=== PATIENT | female | born 1960 | race Hispanic/Latino ===

== ENCOUNTER 2018-08-05 10:26 | Emergency (ER) | payer MEDICARE ==
[2018-08-05] MEDS ORDERED: ONDANSETRON ODT 4 MG TAB ONE (11:32)
[2018-08-05] MEDS ORDERED: MORPHINE SULFATE 4 MG/1ML SYG ONE (11:33)
[2018-08-05 11:35] LABS: APPEARANCE,URINE Clear (CLEAR); BILIRUBIN,URINE Negative (NEGATIVE); COLOR,URINE Yellow (YELLOW); GLUCOSE, URINE (UA) Negative (NEGATIVE); KETONES,URINE Negative (NEGATIVE); LEUKOCYTE ESTERASE ,URINE Negative (NEGATIVE); NITRATE,URINE Negative (NEGATIVE); OCCULT BLOOD,URINE Negative (NEGATIVE); PH,URINE 5.5 (5.0-8.0); PROTEIN,URINE POS 1+ (NEGATIVE); UROBILINOGEN,URINE 0.2 mg/dL (0.2-1.0)
[2018-08-05 11:54] LABS: BACTERIA,URINE Rare /HPF (None Seen); RBC,URINE None Seen /HPF (0-1); WBC,URINE None Seen /HPF (0-1)
== END 2018-08-05 13:09 | disposition home or self-care (01) ==
LOC: EDH 10:26
DX: S86.811A Strain of other muscle(s) and tendon(s) at lower leg level, right leg, initial encounter (principal); E11.9 Type 2 diabetes mellitus without complications; I10 Essential (primary) hypertension; X58.XXXA Exposure to other specified factors, initial encounter; Y93.89 Activity, other specified; Y92.89 Other specified places as the place of occurrence of the external cause; Y99.8 Other external cause status
CPT/HCPCS: 73502; 73552; 81001; 96372; 99284; J2270

== ENCOUNTER 2018-11-03 19:17 | Emergency (ER) | payer MEDICARE ==
[2018-11-03] MEDS ORDERED: DiphenhydrAMINE HCL 50 MG/ML VIAL ONE (20:06)
[2018-11-03] MEDS ORDERED: FAMOTIDINE/PF 20 MG/2 ML VIAL IV ONE (20:07)
[2018-11-03 20:11] LABS: BASOPHILS % (AUTO) 0.5 % (0.0-5.0); EOSINOPHILS % (AUTO) 1.6 % (0.0-8.0); HEMATOCRIT 34.5 % (36-48); LYMPHOCYTES % (AUTO) 19.6 % (21.0-51.0); MEAN CORPUSCULAR HEMOGLOBIN 30.9 pg (27.0-33.0); MEAN CORPUSCULAR HGB CONC 32.9 g/dL (32.0-36.0); MEAN CORPUSCULAR VOLUME 93.7 fL (79-99); MONOCYTES % (AUTO) 8.2 % (3.0-13.0); NEUTROPHILS % (AUTO) 70.1 % (40.0-77.0); PLATELET COUNT (AUTO) 104 K/uL (130-400); RED BLOOD CELL COUNT(AUTO) 3.68 MIL/uL (4.00-5.50); RED CELL DISTRIBUTION WIDTH 14.4 % (11.0-15.5); WHITE BLOOD COUNT (AUTO) 3.7 K/uL (4.8-10.8)
[2018-11-03 20:31] LABS: CREATININE 0.8 mg/dL (0.5-1.5); POTASSIUM 4.5 mmol/L (3.5-5.1)
[2018-11-03 20:35] LABS: ALBUMIN 2.8 g/dL (3.5-5.0); BILIRUBIN,TOTAL 0.3 mg/dL (0.2-1.0); TOTAL PROTEIN, SERUM 6.6 g/dL (6.0-8.3)
[2018-11-03] MEDS ORDERED: ONDANSETRON HCL 4 MG/2 ML VIAL ONE (21:01)
[2018-11-03] MEDS ORDERED: MORPHINE SULFATE 4 MG/1ML SYG ONE (21:01)
== END 2018-11-03 22:17 | disposition home or self-care (01) ==
LOC: EDH 19:17
DX: L03.316 Cellulitis of umbilicus (principal); I10 Essential (primary) hypertension; E11.9 Type 2 diabetes mellitus without complications; T78.40XA Allergy, unspecified, initial encounter; X58.XXXA Exposure to other specified factors, initial encounter
CPT/HCPCS: 36415; 80053; 85025; 96374; 96375; 99284; J1200; J2270; J2405; J3490

== ENCOUNTER 2019-12-14 13:24 | Inpatient (IN) | payer MEDICARE ==
[~2019-12-14] VITALS: Ht 157.5 cm; Wt 68.4 kg
[2019-12-14 14:44] LABS: BASOPHILS % (AUTO) 0.1 % (0.0-5.0); EOSINOPHILS % (AUTO) 2.2 % (0.0-8.0); HEMATOCRIT 30.2 % (36-48); LYMPHOCYTES % (AUTO) 1.8 % (21.0-51.0); MEAN CORPUSCULAR HEMOGLOBIN 29.2 pg (27.0-33.0); MEAN CORPUSCULAR HGB CONC 31.8 g/dL (32.0-36.0); MEAN CORPUSCULAR VOLUME 91.8 fL (79-99); MONOCYTES % (AUTO) 1.6 % (3.0-13.0); NEUTROPHILS % (AUTO) 94.1 % (40.0-77.0); PLATELET COUNT (AUTO) 156 K/uL (130-400); RED BLOOD CELL COUNT(AUTO) 3.29 MIL/uL (4.00-5.50); RED CELL DISTRIBUTION WIDTH 19.8 % (11.0-15.5); WHITE BLOOD COUNT (AUTO) 17.1 K/uL (4.8-10.8)
[2019-12-14 15:04] LABS: CREATININE 2.2 mg/dL (0.5-1.5); POTASSIUM 3.5 mmol/L (3.5-5.1)
[2019-12-14] MEDS ORDERED: SODIUM CHLORIDE 0.9% 1000ML 1,000 ML IV ONE (15:14)
[2019-12-14 15:20] LABS: BILIRUBIN,TOTAL 0.4 mg/dL (0.2-1.0); TOTAL PROTEIN, SERUM 6.9 g/dL (6.0-8.3)
[2019-12-14 15:28] LABS: APPEARANCE,URINE CLEAR (CLEAR); BILIRUBIN,URINE SMALL (NEGATIVE); COLOR,URINE YELLOW (YELLOW); GLUCOSE, URINE (UA) NEGATIVE (NEGATIVE); KETONES,URINE NEGATIVE (NEGATIVE); LEUKOCYTE ESTERASE ,URINE NEGATIVE (NEGATIVE); NITRATE,URINE NEGATIVE (NEGATIVE); OCCULT BLOOD,URINE NEGATIVE (NEGATIVE); PH,URINE 5.5 (5.0-8.0); PROTEIN,URINE NEGATIVE (NEGATIVE); UROBILINOGEN,URINE 0.2 mg/dL (0.2-1.0)
[2019-12-14 15:36] LABS: BACTERIA,URINE Few /HPF (None Seen); MUCUS,URINE Moderate LPF (None Seen); SQUAMOUS EPITHELIAL CELL,UR Few /HPF (0-2)
[2019-12-14] MEDS: 1/2 NORMAL SALINE 1,000 ML IV SCH (16:00)
[2019-12-14] MEDS ORDERED: CEFEPIME HCL 1 GM VIAL ONE (16:33)
[2019-12-14] MEDS: CEFEPIME HCL 1 GM VIAL IVP SCH (17:00)
[2019-12-14 17:46] VITALS: BP 116/62
--- NOTE | 2019-12-14 18:30 | NUR ---
DR. ANTON MALIK MD PAGED REGARDING BLOOD SUGAR 58 AND NEED FOR DIET ORDERS.
[2019-12-14] MEDS ORDERED: DEXTROSE 50%-WATER 50 ML DISP.SYRIN IV ONE (18:53)
--- NOTE | 2019-12-14 18:55 | NUR ---
HYPOGLYCEMIA PROTOCOL INITIATED PATIENT CONSCIOUS BUT VERY WEAK AND NOT ABLE TO DRINK 1/2 CUP OF ORANGE JUICE. ADMINISTERED DEXTROSE 50% 25 ML VIA IV.
[2019-12-14 19:13] VITALS: BP 123/54
--- NOTE | 2019-12-14 19:15 | NUR ---
BLOOD SUGAR RECHECK 52 INITIATED DEXTROSE 10% AT 60 CC/HR PER HYPOGLYCEMIA PROTOCOL. PATIENT CONSCIOUS AND RESPONSIVE. WILL CONTINUE TO MONITOR.
[2019-12-14] MEDS ORDERED: DEXTROSE 10%-WATER 1,000 ML IV ONE (19:19)
--- NOTE | 2019-12-14 20:00 | NUR ---
REPAGED DR. WALTON CALLED 'S ANSWERING SERVICE TO REPAGE
[2019-12-14] MEDS ORDERED: DEXTROSE 50%-WATER 50 ML DISP.SYRIN IV PRN (20:15)
[2019-12-14] MEDS: DEXTROSE 10%-WATER 1,000 ML IV SCH (20:15)
[2019-12-14] MEDS ORDERED: GLUCAGON 1MG KIT 1 MG ML IM PRN (20:15)
[2019-12-14] MEDS: ONDANSETRON HCL 4 MG/2 ML VIAL IVP PRN (21:15)
[2019-12-14] MEDS ORDERED: ESCI10TA54 PO (22:05)
[2019-12-14] MEDS ORDERED: OMEP40CA13 PO (22:05)
[2019-12-14] MEDS ORDERED: PENT400T72 PO (22:05)
[2019-12-14] MEDS ORDERED: IRON 65 MG PO (22:05)
[2019-12-14] MEDS ORDERED: ONDA-104 PO (22:05)
[2019-12-14] MEDS ORDERED: NIFE90TA65 PO (22:05)
[2019-12-14] MEDS ORDERED: CLOP75TA32 PO (22:05)
[2019-12-14] MEDS ORDERED: AEC81 PO (22:05)
[2019-12-14] MEDS ORDERED: TRAM50TA4 PO (22:05)
[2019-12-14] MEDS ORDERED: FURO20TA4 PO (22:05)
[2019-12-14] MEDS ORDERED: SULF1TAB42 PO (22:05)
[2019-12-14] MEDS ORDERED: MULT-1250 PO (22:05)
[2019-12-14] MEDS ORDERED: ICOS1CAP PO (22:05)
[2019-12-14] MEDS ORDERED: ATOR40TA71 PO (22:05)
[2019-12-14] MEDS ORDERED: SILD20TA14 PO (22:05)
[2019-12-14 23:58] VITALS: BP 136/63
--- NOTE | 2019-12-15 01:00 | NUR ---
SISTER STATES PATIENT HAS NOT VOIDED SINCE YESTERDAY AT 11:00AM IN ER. PATIENT DENIES URGE TO VOID, BUT VOICED DISCOMFORT UPON BLADDER PALPATION. AFTER MULTIPLE ATTEMPTS, BLADDER SCAN NOTES GREATER THAN 1234ML OF URINE. INSERTED 16FR F/C, BUT OBTAINED ONLY 400ML OF URINE WITH TRACES OF SEDIMENT. WILL CONTINUE TO MONITOR.
[2019-12-15 04:00] VITALS: BP 118/42
[2019-12-15] MEDS: CEFEPIME HCL 1 GM VIAL IVP SCH ×2 (05:02→16:08)
[2019-12-15] MEDS ORDERED: SODIUM CHLORIDE 0.9% 250 ML IV ONE (05:04)
[2019-12-15 05:11] LABS: BASOPHILS % (AUTO) 0.1 % (0.0-5.0); EOSINOPHILS % (AUTO) 0.3 % (0.0-8.0); HEMATOCRIT 27.6 % (36-48); LYMPHOCYTES % (AUTO) 4.1 % (21.0-51.0); MEAN CORPUSCULAR HEMOGLOBIN 29.3 pg (27.0-33.0); MEAN CORPUSCULAR HGB CONC 31.9 g/dL (32.0-36.0); MONOCYTES % (AUTO) 2.6 % (3.0-13.0); NEUTROPHILS % (AUTO) 92.5 % (40.0-77.0); NUCLEATED RED BLOOD CELLS 0.2 % (0.0-0.19); PLATELET COUNT (AUTO) 121 K/uL (130-400); RED CELL DISTRIBUTION WIDTH 20.1 % (11.0-15.5)
[2019-12-15 05:29] LABS: ALBUMIN 1.4 g/dL (3.5-5.0); BILIRUBIN,TOTAL 0.2 mg/dL (0.2-1.0); CREATININE 2.1 mg/dL (0.5-1.5); POTASSIUM 3.1 mmol/L (3.5-5.1); TOTAL PROTEIN, SERUM 5.6 g/dL (6.0-8.3)
--- NOTE | 2019-12-15 07:25 | NUR ---
DR. WALTON CALLED BACK AND WAS INFORMED OF BLADDER SCAN RESULTS AND INSERTION OF F/C. HE GAVE OK FOR THE F/C. HE WAS ALSO INFORMED OF K+ 3.1 AND MAG OF 1.1 THIS AM, BUN 36/CREA 2.1, STATES HE WILL BE IN LATER THIS AM.
[2019-12-15 07:59] VITALS: BP 118/57
--- NOTE | 2019-12-15 08:00 | NUR ---
RECIEVED PT WITH D10W INFUSING AT 60 [facility] PER PROTOCOL TO KEEP BLOOD SUGARS GREATER THAN 70'S. BLOOD SUGAR CHECK AT Q 4 HRS . FOR MONITORING . STATUS.
[2019-12-15] MEDS: PANTOPRAZOLE SODIUM 40 MG TABLET.DR PO SCH (09:00)
[2019-12-15] MEDS ORDERED: TRAMADOL HCL 50 MG TABLET PO SCH (09:00)
[2019-12-15] MEDS ORDERED: SILDENAFIL CITRATE 20 MG TABLET PO SCH (09:00)
[2019-12-15] MEDS: ATORVASTATIN CALCIUM 40 MG TABLET PO SCH (09:00)
[2019-12-15] MEDS: **HM** VASCEPA 2GM PO SCH (09:00)
[2019-12-15] MEDS: MULTIVITAMINS/MINERALS/IRO TAB PO SCH (09:00)
[2019-12-15] MEDS ORDERED: PANTOPRAZOLE 40 MG/VIAL IVP SCH (09:00)
[2019-12-15] MEDS: FERROUS SULFATE 325 MG TABLET.DR PO SCH (09:00)
[2019-12-15] MEDS: FUROSEMIDE 20 MG TABLET PO SCH (09:00)
[2019-12-15] MEDS: NIFEDIPINE ER 30 MG TAB PO SCH (09:00)
[2019-12-15] MEDS: CITALOPRAM 20 MG TABLET PO SCH (09:00)
[2019-12-15] MEDS: ASPIRIN 81 MG EC TAB PO SCH (09:00)
[2019-12-15] MEDS ORDERED: CLOPIDOGREL BISULFATE 75 MG TAB PO SCH (09:00)
[2019-12-15] MEDS: PENTOXIFYLLINE 400 MG TABLET.SA PO SCH ×2 (09:00→20:30)
--- NOTE | 2019-12-15 10:00 | NUR ---
SITTER AT THE BEDSIDE, GENE STATED THAT THE HOME MEDICATIONS . THAT ARE LISTED TO GIVE OR NOT GIVEN AT THE TIMES THE HOSPITAL HAS THEM LIST TO GIVE, . STATED THAT SHE WOULD GIVE HER SISTER HER HOME MEDICATIONS AT THE PROPER TIME AND WILL LET US KNOW WHICH ONE, STATED THAT SHE WOULD TAKE CARE OF THAT AREA . OF HER SISTER CARE . REVIEW MEDICATIONS LISTED TO GIVE STATED THAT THE TIMES TO GIVE THEM TO HER WOULD ONLY GET HER SICK TO HER STOMACH . IF MEDICATION ARE GIVEN SCHLD.
[2019-12-15 11:18] VITALS: BP 121/74
--- NOTE | 2019-12-15 12:00 | NUR ---
DRSG TO HER ABD DONE. PER SISTER INFORMATION . SITE TO LOWER AREA OF ABD .CLEANSE WITH THE SALINE, PAD DRY AND APPLICATION OF MED HONEY AND THE IDOFORM AND USED PAPER TAPE . PT HAS ONE SM TO HER LT INNER GROIN AND WAS DONE. PER SISTER INFORMATION . A WAFFLE MATTRESS OFFER FOR SKIN CARE. COMFORT.
[2019-12-15] MEDS ORDERED: POTASSIUM CHLORIDE 20MEQ/100ML 100 ML IV PRN ×2 (12:15→17:00)
[2019-12-15] MEDS ORDERED: LIDOCAINE HCL-MPF 1% 2ML VIAL IV PRN ×2 (12:15→17:00)
[2019-12-15] MEDS ORDERED: TRAMADOL HCL 50 MG TABLET PO PRN (14:15)
[2019-12-15] MEDS ORDERED: MAGNESIUM OXIDE 400 MG TABLET PO ONE (15:09)
[2019-12-15] MEDS ORDERED: MAGNESIUM OXIDE 400 MG TABLET PO SCH (15:15)
[2019-12-15] MEDS: DEXTROSE 10%-WATER 1,000 ML IV SCH (16:09)
[2019-12-15 16:35] VITALS: BP 119/48
[2019-12-15] MEDS: POTASSIUM CHLORIDE 10% ELIXIR 20 MEQ/15 ML UDCUP PO PRN (16:49)
[2019-12-15] MEDS ORDERED: POTASSIUM CHLORIDE 10% ELIXIR 20 MEQ/15 ML UDCUP PO PRN (17:00)
[2019-12-15] MEDS: POTASSIUM CHLORIDE 20 MEQ ERTAB PO PRN (18:29)
[2019-12-15] MEDS: 1/2 NORMAL SALINE 1,000 ML IV SCH (18:40)
--- NOTE | 2019-12-15 18:51 | NUR ---
D/C PLAN CM spoke to sister named Delores regarding d/c planning. [facility] pt lives with sister named Ira. Denies having any home health. Pt has provider and has assistance 23/01. [facility] pt has w/c and shower chair at home. [facility] pt follows up with Dr. Hernandez every Monday for wound care. [facility] family was performing wound care at home. CM then discussed with both sister Ira and Delores about plan after the hospital. [facility] they have discussed [facility] placement vs hospice at home. [facility] Dr. Last is treating in hospital and monitoring for improvement in condition. CM obtained consent for CAROL to [facility]. No d/c planning orders at this time. Plan for now is SNF vs hospice. CM to f/u. Addendum: 12/15/19 at 1854 by JOSHUA KITCHEN CM Amended: Links added.
[2019-12-15 20:00] VITALS: BP 99/70
[2019-12-15] MEDS: SILDENAFIL CITRATE 20 MG TABLET PO SCH (20:30)
[2019-12-15] MEDS: CLOPIDOGREL BISULFATE 75 MG TAB PO SCH (20:30)
[2019-12-15 23:38] VITALS: BP_SYST 106; BP_SYST 139; BP_DIAS 50; BP_DIAS 76
[2019-12-16] MEDS: TRAMADOL HCL 50 MG TABLET PO PRN (01:24)
[2019-12-16] MEDS: ONDANSETRON HCL 4 MG/2 ML VIAL IVP PRN ×3 (01:24→16:16)
[2019-12-16] MEDS: POTASSIUM CHLORIDE 20 MEQ ERTAB PO PRN (01:25)
--- NOTE | 2019-12-16 02:00 | NUR ---
Pain Patient medicated as per [place] for complaints of ABD pain with Tramadol 100mg po. Patient and sister at bedside requesting something stronger for pain at this time. called and aware. New orders received and carried out. Patient and family aware. Initial dose of Morphine 4mg given IVP slowly. Tolerated well. Repositioned for comfort. No signs of distress noted. Call light within reach. Will continue to be observed. Addendum: 12/16/19 at 0726 by SENG LOUISE RN RN Amended: Links added.
[2019-12-16] MEDS ORDERED: MORPHINE SULFATE 4 MG/1ML SYG ONE (02:01)
[2019-12-16 03:42] VITALS: BP 118/49
[2019-12-16 05:05] LABS: HEMATOCRIT 29.5 % (36-48); MEAN CORPUSCULAR HEMOGLOBIN 29.5 pg (27.0-33.0); MEAN CORPUSCULAR HGB CONC 32.5 g/dL (32.0-36.0); MEAN CORPUSCULAR VOLUME 90.8 fL (79-99); RED BLOOD CELL COUNT(AUTO) 3.25 MIL/uL (4.00-5.50); RED CELL DISTRIBUTION WIDTH 20.2 % (11.0-15.5); WHITE BLOOD COUNT (AUTO) 8.3 K/uL (4.8-10.8)
[2019-12-16 05:25] LABS: ALBUMIN 1.4 g/dL (3.5-5.0); BILIRUBIN,TOTAL 0.2 mg/dL (0.2-1.0); CREATININE 1.8 mg/dL (0.5-1.5); POTASSIUM 3.5 mmol/L (3.5-5.1); TOTAL PROTEIN, SERUM 5.7 g/dL (6.0-8.3)
[2019-12-16] MEDS: MORPHINE SULFATE 4 MG/1ML SYG IV PRN ×2 (05:40→10:41)
[2019-12-16] MEDS: CEFEPIME HCL 1 GM VIAL IVP SCH ×2 (05:40→16:07)
[2019-12-16] MEDS: DEXTROSE 10%-WATER 1,000 ML IV SCH ×2 (06:24→16:06)
[2019-12-16 07:30] VITALS: BP 119/58
[2019-12-16] MEDS: NIFEDIPINE ER 30 MG TAB PO SCH (09:00)
[2019-12-16] MEDS: SILDENAFIL CITRATE 20 MG TABLET PO SCH ×2 (09:00→21:00)
[2019-12-16] MEDS: NYSTATIN 15 GM POWDER TP SCH ×2 (09:00→21:00)
[2019-12-16] MEDS: PENTOXIFYLLINE 400 MG TABLET.SA PO SCH ×2 (09:00→21:00)
[2019-12-16] MEDS: PANTOPRAZOLE SODIUM 40 MG TABLET.DR PO SCH (09:00)
[2019-12-16] MEDS: FUROSEMIDE 20 MG TABLET PO SCH (09:00)
[2019-12-16] MEDS: MULTIVITAMINS/MINERALS/IRO TAB PO SCH (09:00)
[2019-12-16] MEDS: FERROUS SULFATE 325 MG TABLET.DR PO SCH (09:00)
[2019-12-16] MEDS: CITALOPRAM 20 MG TABLET PO SCH (09:00)
[2019-12-16] MEDS: ASPIRIN 81 MG EC TAB PO SCH (09:00)
[2019-12-16] MEDS: **HM** VASCEPA 2GM PO SCH (09:00)
[2019-12-16] MEDS ORDERED: MAGNESIUM OXIDE 400 MG TABLET PO SCH (09:00)
[2019-12-16] MEDS: ATORVASTATIN CALCIUM 40 MG TABLET PO SCH (09:00)
--- NOTE | 2019-12-16 10:00 | NUR ---
PT'S SISTER WHO IF POA OF PT PREFERS TO GIVE PT HER HOME MEDICATIONS FROM THERE OWN SUPPLY AND AT THE TIMES SHE TAKES THEM AT HOME; I HAVE GIVEN HER MAG OX FROM THE HOSPITAL SUPPLY
--- NOTE | 2019-12-16 10:50 | NUR ---
PT C/O NAUSEA, SHE VOMITED UP 2 OF THE PILLS SHE WAS TAKING; I HAVE GIVEN HER ZOFRAN FOR THE NAUSEA AND MORPHINE FOR THE PAIN SHE IS C/O. WOUND CARE CENTER PERSON HERE TO EVALUATE WOUND ON LEFT HAND THUMB, THE PT'S DAUGHTER CHANGES THE DRESSING AT HOME AND APPLIES SANTYL CREAM; WOUND CARE STATED THIS HOSPITAL DID NOT CARRY SANTYL CREAM BUT THAT IF THE FAMILY WANTS TO THEY COULD USE THERE OWN OWEN CREAM ON IT; THE PT'S SISTER STATED THEY WILL USE THERE OWN CREAM THEN AND SHE REDRESSED THE WOUND WITH PT'S OWN CREAM; I ATTEMPTED TO TAKE A PICTURE OF THE WOUND BUT THE BATTERY WAS ON THE CAMERA, ITS MEASUREMENTS WERE 1.3 CM B1.8 CM W/ A DEPTH OF .2 CM; IT IS A CIRCULAR WOUND WITH WHITE TISSUE WITHIN THE WOUND BEDS, PT TOLERATED PROC. WELL. PT THEN WENT FOR CT OF ABDOMAN AND PELVIS TO EVALUATE THE WOUND ON HER LOWER ABDOMAN.
[2019-12-16 11:00] VITALS: BP 136/68
--- NOTE | 2019-12-16 12:00 | NUR ---
I HAVE LEFT MESSAGE ON DR WALTON CELL PHONE IN REGARDS TO RESULTS OF CT DONE AND PT'S MAGNESIUM LEVEL; PENDING CALL BACK
--- NOTE | 2019-12-16 12:12 | NUR ---
[facility] consult Patient assessed as ordered. Patient with wounds to abdomen, mons pubis, coccyx and right buttock; all being treated with medihoney. Wound to left thumb also assessed. Patient's cg requesting to continue treatment as ordered by Dr. Hernandez. [facility] in agreement and cg has patient's treatment in room for use. Consult by Dr. Hernandez pending. Waffle mattress in use.
[2019-12-16] MEDS: POTASSIUM CHLORIDE 10% ELIXIR 20 MEQ/15 ML UDCUP PO PRN (12:19)
[2019-12-16 12:47] LABS: INR 1.36 (0.85-1.15); PROTHROMBIN TIME 14.5 SEC (9.6-11.6)
--- NOTE | 2019-12-16 14:20 | NUR ---
DC PLAN SPOKE TO NURSE SAID PATIENT HAS POSSIBLE ILIUS, ASCITIES, CT WAS ABNORMAL. LABS ABNORMAL NOT READY FOR DC IN NEXT 24 - 48 HRS. SPOKE TO TIFF SAID THEY WOULD NEED THE COVID SINCE THE CITY SAID THEY NEED IT. ASKED NURSE TO PLEASE CLARIFY ORDER FOR SNF HOW LONG DR. WALTON WOULD WANT ABX FOR. PATIENT ALSO PENDING PICC LINE. Addendum: 12/16/19 at 1422 by ASAD HUA RN CM Amended: Links added.
--- NOTE | 2019-12-16 15:03 | NUR ---
I SPOKE TO DR WALTON ON THE PHONE AND HE STATED TO PLAN FOR 7 DAYS OF IV ABX AT , TO INCREASE MAG OX 400 PO TO BID INSTEAD OF DAILY FOR MG LEVEL OF 1.0 AND TO HAVE INTERVENTIONAL RADIOLOGY PERFORM PARACENTESIS FOR LARGE ASCITES COLLECTION IN ABDOMAN. ; I HAVE ENTERED ORDERS FOR ALL THE ABOVE.
[2019-12-16 16:00] VITALS: BP 145/56
[2019-12-16] MEDS: 1/2 NORMAL SALINE 1,000 ML IV SCH (16:06)
[2019-12-16 19:30] VITALS: BP 107/57
[2019-12-16] MEDS: CLOPIDOGREL BISULFATE 75 MG TAB PO SCH (21:00)
[2019-12-16] MEDS: MAGNESIUM OXIDE 400 MG TABLET PO SCH (21:00)
--- NOTE | 2019-12-16 21:00 | NUR ---
JUAN C PINEDA PAGED
--- NOTE | 2019-12-16 21:00 | NUR ---
WOUND CARE PERFORMEDAS ORDERED PT TOLERATED PROCEDURE WELL
[2019-12-17] VITALS (13 sets, daily range): BP systolic 126–154; BP diastolic 55–76
[2019-12-17] MEDS: ONDANSETRON HCL 4 MG/2 ML VIAL IVP PRN ×2 (01:24→15:15)
--- NOTE | 2019-12-17 01:50 | NUR ---
DR. ALBERTO MALIK AGAIN NO CALL BACK YET Addendum: 12/17/19 at 0208 by EDE BENSON RN Amended: Links added.
--- NOTE | 2019-12-17 03:50 | NUR ---
DR DOMINGUEZ PAGED TO HER CELLPHONE NO ANSWER
[2019-12-17 04:03] LABS: EOSINOPHILS % (AUTO) 0.1 % (0.0-8.0); HEMATOCRIT 29.4 % (36-48); LYMPHOCYTES % (AUTO) 3.8 % (21.0-51.0); MEAN CORPUSCULAR HEMOGLOBIN 29.5 pg (27.0-33.0); MEAN CORPUSCULAR HGB CONC 32.7 g/dL (32.0-36.0); MEAN CORPUSCULAR VOLUME 90.5 fL (79-99); MONOCYTES % (AUTO) 2.6 % (3.0-13.0); NEUTROPHILS % (AUTO) 93.2 % (40.0-77.0); NUCLEATED RED BLOOD CELLS 0.2 % (0.0-0.19); PLATELET COUNT (AUTO) 146 K/uL (130-400); RED BLOOD CELL COUNT(AUTO) 3.25 MIL/uL (4.00-5.50); RED CELL DISTRIBUTION WIDTH 19.8 % (11.0-15.5); WHITE BLOOD COUNT (AUTO) 10.3 K/uL (4.8-10.8)
[2019-12-17 04:18] LABS: ALBUMIN 1.4 g/dL (3.5-5.0); BILIRUBIN,TOTAL 0.3 mg/dL (0.2-1.0); CREATININE 1.5 mg/dL (0.5-1.5); POTASSIUM 3.7 mmol/L (3.5-5.1); TOTAL PROTEIN, SERUM 5.4 g/dL (6.0-8.3)
--- NOTE | 2019-12-17 06:20 | NUR ---
DR. DOMINGUEZ CALLED BACK AWARE OF PT' S HISTORY AND STATUS , AWARE OF PT'S CT ABD RESUTLS AND EPISODES OF EMESIS , AWARE OF COLOR OF EMESIS ASKED OF PATIENT MIGHT BENEFIT FROM NG TUBE STATED , NO , TO LET ROUND
[2019-12-17] MEDS: CEFEPIME HCL 1 GM VIAL IVP SCH ×2 (06:38→18:07)
[2019-12-17] MEDS: MORPHINE SULFATE 4 MG/1ML SYG IV PRN ×2 (06:39→20:27)
[2019-12-17] MEDS: HONEY 1 APPL/ML TUBE TP SCH (06:45)
[2019-12-17] MEDS: NYSTATIN 15 GM POWDER TP SCH ×2 (09:00→22:00)
[2019-12-17] MEDS: PENTOXIFYLLINE 400 MG TABLET.SA PO SCH ×2 (09:00→21:57)
[2019-12-17] MEDS: NIFEDIPINE ER 30 MG TAB PO SCH (09:00)
[2019-12-17] MEDS: ATORVASTATIN CALCIUM 40 MG TABLET PO SCH (09:00)
[2019-12-17] MEDS: MAGNESIUM OXIDE 400 MG TABLET PO SCH ×2 (09:00→21:57)
[2019-12-17] MEDS: **HM** VASCEPA 2GM PO SCH (09:00)
[2019-12-17] MEDS: FUROSEMIDE 20 MG TABLET PO SCH (09:00)
[2019-12-17] MEDS: ASPIRIN 81 MG EC TAB PO SCH (09:00)
[2019-12-17] MEDS: CITALOPRAM 20 MG TABLET PO SCH (09:00)
[2019-12-17] MEDS: FERROUS SULFATE 325 MG TABLET.DR PO SCH (09:00)
[2019-12-17] MEDS: PANTOPRAZOLE SODIUM 40 MG TABLET.DR PO SCH (09:00)
[2019-12-17] MEDS: MULTIVITAMINS/MINERALS/IRO TAB PO SCH (09:00)
--- NOTE | 2019-12-17 09:45 | NUR ---
U/S GD PARACENTESIS PROCEDURE PERFORMED BY DR Radha ALDANA. PUNCTURE SITE RUQ AND PATIENT TOLERATED PROCEDURE WELL. TOTAL REMOVED 5.1 LITERS OF CLOUDY YELLOW FLUID. END OF PROCEDURE AT 0930. CATHETER REMOVED AND DRESSING APPLIED. NO BLEEDING NOTED. REPORT GIVEN TO Diane COHN RN AND PATIENT TRANSPORTED TO [facility] VIA BED AT 0945. AAO X3 WITH NO C/O PAIN. SPECIMEN SENT TO LAB.
[2019-12-17] MEDS ORDERED: ALBUMIN (HUMAN) 25% 100 ML IV SCH (10:15)
[2019-12-17] MEDS: 1/2 NORMAL SALINE 1,000 ML IV SCH ×2 (10:33→23:38)
[2019-12-17] MEDS: SILDENAFIL CITRATE 20 MG TABLET PO SCH ×2 (10:35→21:57)
[2019-12-17 12:54] LABS: APPEARANCE BODY FLUID CLOUDY (CLEAR); COLOR,BODY FLUID LT YELLOW (LT YELLOW); SPECIMENTYPE,BODY FLUID ASCITES; TOTAL VOLUME,BODY FLUID 5100 mL
[2019-12-17 12:55] LABS: BODY FLUID RBC 59 /cu. mm.; BODY FLUID WBC 368 /cu. mm.
[2019-12-17 12:59] LABS: BF LYMPHOCYTE 11 %; BF MONOCYTE 9 %
[2019-12-17] MEDS: DEXTROSE 10%-WATER 1,000 ML IV SCH (13:55)
[2019-12-17] MEDS: ONDANSETRON HCL 4 MG/2 ML VIAL IVP SCH ×2 (18:00→23:42)
[2019-12-17] MEDS: CLOPIDOGREL BISULFATE 75 MG TAB PO SCH (21:57)
[2019-12-18] VITALS (7 sets, daily range): BP systolic 108–167; BP diastolic 47–71
[2019-12-18] MEDS: MORPHINE SULFATE 4 MG/1ML SYG IV PRN ×4 (03:29→23:26)
--- NOTE | 2019-12-18 04:30 | NUR ---
TOOK OVER CARE TOOK OVER CARE FROM GENE ORTIZ RN PATIENT AAOX2 FAMILY MEMBER AT BEDSIDE. PATIENTS DRESSING TO ABD DRY AND INTACT. MCKINNEY CATHETER IN PLACE AND TELEMONITOR IN PLACE WELL. ALL QUESTIONS AND CONCERNS ADDRESSED.
[2019-12-18] MEDS: CEFEPIME HCL 1 GM VIAL IVP SCH ×2 (05:50→16:17)
[2019-12-18] MEDS: ONDANSETRON HCL 4 MG/2 ML VIAL IVP SCH ×4 (05:50→23:25)
[2019-12-18] MEDS: DEXTROSE 10%-WATER 1,000 ML IV SCH ×2 (05:51→23:26)
--- NOTE | 2019-12-18 06:09 | NUR ---
DRESSING ATTEMPTED TO CHANGE ABDOMINAL DRESSING BUT FAMILY MEMBER AT BED SIDE STATED TO WAIT. NIECE STATED PATIENT SISTER WAS GOING TO BATH PATIENT IN AM AND THEN WE COULD DO THE DRESSING AFTER.
[2019-12-18] MEDS: ATORVASTATIN CALCIUM 40 MG TABLET PO SCH (09:00)
[2019-12-18] MEDS: **HM** VASCEPA 2GM PO SCH (09:00)
[2019-12-18] MEDS: ASPIRIN 81 MG EC TAB PO SCH (09:00)
[2019-12-18] MEDS: FUROSEMIDE 20 MG TABLET PO SCH (09:00)
[2019-12-18] MEDS: SILDENAFIL CITRATE 20 MG TABLET PO SCH ×2 (09:00→21:00)
[2019-12-18] MEDS: MAGNESIUM OXIDE 400 MG TABLET PO SCH ×2 (09:00→21:00)
[2019-12-18] MEDS: PANTOPRAZOLE SODIUM 40 MG TABLET.DR PO SCH (09:00)
[2019-12-18] MEDS: CITALOPRAM 20 MG TABLET PO SCH (09:00)
[2019-12-18] MEDS: FERROUS SULFATE 325 MG TABLET.DR PO SCH (09:00)
[2019-12-18] MEDS: NIFEDIPINE ER 30 MG TAB PO SCH (09:00)
[2019-12-18] MEDS: PENTOXIFYLLINE 400 MG TABLET.SA PO SCH ×2 (09:00→21:00)
[2019-12-18] MEDS: MULTIVITAMINS/MINERALS/IRO TAB PO SCH (09:00)
[2019-12-18] MEDS: HONEY 1 APPL/ML TUBE TP SCH (09:20)
[2019-12-18] MEDS: NYSTATIN 15 GM POWDER TP SCH ×2 (09:21→21:14)
[2019-12-18 10:10] LABS: MEAN CORPUSCULAR HEMOGLOBIN 29.8 pg (27.0-33.0); MEAN CORPUSCULAR HGB CONC 32.7 g/dL (32.0-36.0); MEAN CORPUSCULAR VOLUME 91.2 fL (79-99); PLATELET COUNT (AUTO) 126 K/uL (130-400); RED BLOOD CELL COUNT(AUTO) 3.29 MIL/uL (4.00-5.50); RED CELL DISTRIBUTION WIDTH 19.9 % (11.0-15.5); WHITE BLOOD COUNT (AUTO) 8.5 K/uL (4.8-10.8)
[2019-12-18 10:20] LABS: CREATININE 1.5 mg/dL (0.5-1.5); POTASSIUM 3.2 mmol/L (3.5-5.1)
[2019-12-18 10:59] LABS: BAND NEUTROPHILS % (MANUAL) 1 % (0-2); LYMPHOCYTES % (MANUAL) 5 % (22-44); MONOCYTES % (MANUAL) 2 % (2-9); SEGMENTED NEUTROPHILS % 92 % (40-70)
[2019-12-18 11:00] LABS: MAN.DIFF COMMENT-IMPRESSION MANUAL DIFFERENTIAL
[2019-12-18 11:02] LABS: PLATELET MORPHOLOGY COMMENT SLIGHTLY DECREASED
[2019-12-18] MEDS ORDERED: POTASSIUM CHLORIDE 20MEQ/100ML 100 ML IV PRN (14:45)
--- NOTE | 2019-12-18 16:10 | NUR ---
NGT 14F NASOGASTRIC TUBE INSERTED AT THIS TIME. THERE WAS AN IMMEDIATE RETURN OF DARK GREEN LIQUID IN THE CANISTER. PATIENT TOLERATED WELL. NGT PLACED TO LOW INTERMITTENT WALL SUCTION. SISTER IN ROOM THROUGHOUT PROCEDURE. PATIENT REPORTS FEELING BETTER. WILL CONTINUE TO MONITOR.
[2019-12-18] MEDS: MAGNESIUM 2GM PREMIX 50ML 50 ML IV PRN (18:24)
[2019-12-18] MEDS ORDERED: BISACODYL 10 MG SUPP.RECT RC ONE (19:30)
[2019-12-18] MEDS: CLOPIDOGREL BISULFATE 75 MG TAB PO SCH (21:00)
[2019-12-19 03:06] VITALS: BP 137/54
[2019-12-19] MEDS: MORPHINE SULFATE 4 MG/1ML SYG IV PRN ×3 (03:49→23:49)
[2019-12-19] MEDS: CEFEPIME HCL 1 GM VIAL IVP SCH ×2 (03:53→16:55)
[2019-12-19 05:26] LABS: BASOPHILS % (AUTO) 0.2 % (0.0-5.0); EOSINOPHILS % (AUTO) 0.7 % (0.0-8.0); HEMATOCRIT 25.5 % (36-48); LYMPHOCYTES % (AUTO) 6.4 % (21.0-51.0); MEAN CORPUSCULAR HEMOGLOBIN 29.8 pg (27.0-33.0); MEAN CORPUSCULAR HGB CONC 32.9 g/dL (32.0-36.0); MEAN CORPUSCULAR VOLUME 90.4 fL (79-99); MONOCYTES % (AUTO) 4.8 % (3.0-13.0); NEUTROPHILS % (AUTO) 87.4 % (40.0-77.0); PLATELET COUNT (AUTO) 80 K/uL (130-400); RED BLOOD CELL COUNT(AUTO) 2.82 MIL/uL (4.00-5.50); RED CELL DISTRIBUTION WIDTH 19.7 % (11.0-15.5); WHITE BLOOD COUNT (AUTO) 5.5 K/uL (4.8-10.8)
[2019-12-19 05:47] LABS: CREATININE 1.4 mg/dL (0.5-1.5); MAGNESIUM 1.6 mg/dL (1.80-2.40); POTASSIUM 3.2 mmol/L (3.5-5.1)
[2019-12-19] MEDS: MAGNESIUM 2GM PREMIX 50ML 50 ML IV PRN (06:01)
[2019-12-19] MEDS: ONDANSETRON HCL 4 MG/2 ML VIAL IVP SCH ×4 (06:01→22:48)
[2019-12-19] MEDS: HONEY 1 APPL/ML TUBE TP SCH (06:27)
[2019-12-19 07:47] VITALS: BP 138/47
[2019-12-19] MEDS: ATORVASTATIN CALCIUM 40 MG TABLET PO SCH (09:00)
[2019-12-19] MEDS: CITALOPRAM 20 MG TABLET PO SCH (09:00)
[2019-12-19] MEDS: ASPIRIN 81 MG EC TAB PO SCH (09:00)
[2019-12-19] MEDS: SILDENAFIL CITRATE 20 MG TABLET PO SCH ×2 (09:00→21:00)
[2019-12-19] MEDS: FERROUS SULFATE 325 MG TABLET.DR PO SCH (09:00)
[2019-12-19] MEDS: NIFEDIPINE ER 30 MG TAB PO SCH (09:00)
[2019-12-19] MEDS: MULTIVITAMINS/MINERALS/IRO TAB PO SCH (09:00)
[2019-12-19] MEDS: MAGNESIUM OXIDE 400 MG TABLET PO SCH ×2 (09:00→21:00)
[2019-12-19] MEDS: PENTOXIFYLLINE 400 MG TABLET.SA PO SCH ×2 (09:00→21:00)
[2019-12-19] MEDS: **HM** VASCEPA 2GM PO SCH (09:00)
[2019-12-19] MEDS: FUROSEMIDE 10 MG/ML 2ML VIAL IV SCH (09:15)
[2019-12-19] MEDS: FAMOTIDINE/PF 20 MG/2 ML VIAL IV SCH (09:15)
[2019-12-19 11:16] VITALS: BP 132/46
[2019-12-19] MEDS: LEVOFLOXACIN 500 MG/D5W 100 ML 100 ML IV SCH (13:23)
[2019-12-19] MEDS: DEXTROSE 5 %-0.45 % NACL 1,000 ML IV SCH ×2 (13:23→21:30)
[2019-12-19] MEDS: NYSTATIN 15 GM POWDER TP SCH ×2 (13:25→22:44)
[2019-12-19] MEDS: DEXTROSE 10%-WATER 1,000 ML IV SCH (13:27)
[2019-12-19 19:09] VITALS: BP 125/47
[2019-12-19] MEDS ORDERED: PHENOL 177 ML BOTTLE PO PRN (20:45)
[2019-12-19] MEDS: CLOPIDOGREL BISULFATE 75 MG TAB PO SCH (21:00)
[2019-12-19 23:11] VITALS: BP 138/52
[2019-12-20 03:58] VITALS: BP 134/48
[2019-12-20 04:29] LABS: BASOPHILS % (AUTO) 0.2 % (0.0-5.0); EOSINOPHILS % (AUTO) 0.9 % (0.0-8.0); HEMATOCRIT 27.8 % (36-48); LYMPHOCYTES % (AUTO) 7.7 % (21.0-51.0); MEAN CORPUSCULAR HEMOGLOBIN 29.4 pg (27.0-33.0); MEAN CORPUSCULAR VOLUME 91.7 fL (79-99); NEUTROPHILS % (AUTO) 85.9 % (40.0-77.0); PLATELET COUNT (AUTO) 65 K/uL (130-400); RED BLOOD CELL COUNT(AUTO) 3.03 MIL/uL (4.00-5.50); RED CELL DISTRIBUTION WIDTH 19.9 % (11.0-15.5); WHITE BLOOD COUNT (AUTO) 5.8 K/uL (4.8-10.8)
[2019-12-20 04:45] LABS: CREATININE 1.1 mg/dL (0.5-1.5); POTASSIUM 3.9 mmol/L (3.5-5.1)
[2019-12-20] MEDS: DEXTROSE 10%-WATER 1,000 ML IV SCH ×2 (05:47→23:27)
[2019-12-20] MEDS: ONDANSETRON HCL 4 MG/2 ML VIAL IVP SCH ×4 (05:48→23:27)
[2019-12-20] MEDS: HONEY 1 APPL/ML TUBE TP SCH (05:48)
[2019-12-20] MEDS: MORPHINE SULFATE 4 MG/1ML SYG IV PRN ×2 (05:48→21:27)
[2019-12-20] MEDS: CEFEPIME HCL 1 GM VIAL IVP SCH ×2 (05:48→16:22)
[2019-12-20 07:30] VITALS: BP 109/38
[2019-12-20] MEDS: DEXTROSE 5 %-0.45 % NACL 1,000 ML IV SCH (07:30)
[2019-12-20] MEDS: NIFEDIPINE ER 30 MG TAB PO SCH (08:55)
[2019-12-20] MEDS: CITALOPRAM 20 MG TABLET PO SCH (08:55)
[2019-12-20] MEDS: ASPIRIN 81 MG EC TAB PO SCH (08:55)
[2019-12-20] MEDS: PENTOXIFYLLINE 400 MG TABLET.SA PO SCH ×2 (08:56→20:01)
[2019-12-20] MEDS: SILDENAFIL CITRATE 20 MG TABLET PO SCH ×2 (08:56→20:02)
[2019-12-20] MEDS: FERROUS SULFATE 325 MG TABLET.DR PO SCH (08:56)
[2019-12-20] MEDS: ATORVASTATIN CALCIUM 40 MG TABLET PO SCH (08:56)
[2019-12-20] MEDS: MULTIVITAMINS/MINERALS/IRO TAB PO SCH (08:56)
[2019-12-20] MEDS: MAGNESIUM OXIDE 400 MG TABLET PO SCH ×2 (08:56→20:01)
[2019-12-20] MEDS: **HM** VASCEPA 2GM PO SCH (08:56)
[2019-12-20] MEDS: NYSTATIN 15 GM POWDER TP SCH ×2 (08:57→21:35)
[2019-12-20] MEDS: FAMOTIDINE/PF 20 MG/2 ML VIAL IV SCH (09:18)
[2019-12-20] MEDS: FUROSEMIDE 10 MG/ML 2ML VIAL IV SCH (09:18)
[2019-12-20] MEDS: LEVOFLOXACIN 500 MG/D5W 100 ML 100 ML IV SCH (11:17)
--- NOTE | 2019-12-20 11:53 | NUR ---
HOSPICE SW met with pt and sister at bedside regarding order for [facility]. Sister upset, stated that they never said they wanted hospice. SW educated sister on hospice services and criteria for eligibility and sister stated "that's not want we want". Sister stated that she asked Dr Last several questions but his responses were short and dismissive. "I asked if IV would continue on hospice, and he said no", but did not explain anything else to me". Sister states that Ira Meredithzman [phone], is pt's MPOA but pt's 2 sisters and mother all care and support pt. Sister states that because of covid, and visitation restrictions, family would prefer pt be at home, but they are in no means "ready to give up on pt". "I asked Dr Last about her prognosis, and he said she thought she would get better, so why is he ordering hospice". Sister explained that this is a recommendation by , but they don't have to go thru with it if they are not ready. Sister states that family does not feel that communication with Dr Last is very good regarding care and prognosis, family feels they really don't understand what is going on with pt nor their options. Sister called Ira and asked her to call SW so they can discuss.
--- NOTE | 2019-12-20 12:04 | NUR ---
DAKOTAH PORTER recd call from DAKOTAH Glover. DAKOTAH states that she was talking to someone at a hospice agency and knows that "hospice is not what family wants". "They explained HH services to her and she feels this is want they are looking for not hospice. DAKOTAH upset, states that family not happy with Dr Last and his care, but because of covid, changing doctors is not an option at this time. CARLOSA feels that communication has not been good and feels they are not well informed on condition or options for pt. German educated CARLOSSandra on Dr Reyes, Palliative Care. DAKOTAH feels that this would help them in making more informed decisions, but feel that Dr Last will be offended by this request and "treat them worse". GERMAN offered to ask Dr Last for consult and see if he agrees. DAKOTAH was agreeable. DAKOTAH states they will continue to treat pt aggressively and are open to other options than hospice at this time. CM made aware of above and will staff with [facility].
--- NOTE | 2019-12-20 12:51 | NUR ---
GERMAN f/u Sw recd call from [facility]. Dr Last wants [facility] to come speak to pt about hospice not Dr Reyes. Sw spoke to pt's sister Ira, who states she does not need a hospice to explain their services, she needs a doctor to explain to her and the family what is pt's current condition, prognosis, and options. Sister states she has spoke to several hospice agencies and knows that this is not what they want for pt unless Dr Last knows something about pt's condition that he has not sheared with them that would call for pt to be on hospice. Sister refused referral to [facility] and will talk to Dr Last herself. Sw to follow and assist as needed
--- NOTE | 2019-12-20 13:13 | NUR ---
ONCOLOGY/ HEMATOLOGY DR. GRECO IN TO SEE PATIENT. NO NEW ORDERS AT THIS TIME.
[2019-12-20 16:00] VITALS: BP 112/37
[2019-12-20] MEDS: CLOPIDOGREL BISULFATE 75 MG TAB PO SCH (20:01)
[2019-12-20 20:28] VITALS: BP 109/55
[2019-12-21] VITALS: BP 117/57
[2019-12-21 04:00] VITALS: BP 138/62
[2019-12-21] MEDS: CEFEPIME HCL 1 GM VIAL IVP SCH ×2 (04:21→17:32)
[2019-12-21] MEDS: MORPHINE SULFATE 4 MG/1ML SYG IV PRN ×4 (04:33→19:54)
[2019-12-21 05:50] LABS: BASOPHILS % (AUTO) 0.1 % (0.0-5.0); EOSINOPHILS % (AUTO) 2.5 % (0.0-8.0); HEMATOCRIT 25.5 % (36-48); LYMPHOCYTES % (AUTO) 6.8 % (21.0-51.0); MEAN CORPUSCULAR HEMOGLOBIN 30.1 pg (27.0-33.0); MEAN CORPUSCULAR HGB CONC 32.9 g/dL (32.0-36.0); MEAN CORPUSCULAR VOLUME 91.4 fL (79-99); MONOCYTES % (AUTO) 5.1 % (3.0-13.0); NEUTROPHILS % (AUTO) 85.1 % (40.0-77.0); PLATELET COUNT (AUTO) 56 K/uL (130-400); RED BLOOD CELL COUNT(AUTO) 2.79 MIL/uL (4.00-5.50); RED CELL DISTRIBUTION WIDTH 19.7 % (11.0-15.5); WHITE BLOOD COUNT (AUTO) 7.3 K/uL (4.8-10.8)
[2019-12-21 06:25] LABS: BILIRUBIN,TOTAL 0.3 mg/dL (0.2-1.0); CREATININE 1.1 mg/dL (0.5-1.5); POTASSIUM 3.5 mmol/L (3.5-5.1); TOTAL PROTEIN, SERUM 4.7 g/dL (6.0-8.3)
[2019-12-21] MEDS: ONDANSETRON HCL 4 MG/2 ML VIAL IVP SCH ×3 (06:33→17:32)
[2019-12-21] MEDS: HONEY 1 APPL/ML TUBE TP SCH (06:41)
[2019-12-21 08:00] VITALS: BP 104/52
[2019-12-21] MEDS: MULTIVITAMINS/MINERALS/IRO TAB PO SCH (09:00)
[2019-12-21] MEDS: ASPIRIN 81 MG EC TAB PO SCH (09:00)
[2019-12-21] MEDS: FAMOTIDINE/PF 20 MG/2 ML VIAL IV SCH (09:00)
[2019-12-21] MEDS: **HM** VASCEPA 2GM PO SCH (09:00)
[2019-12-21] MEDS: FERROUS SULFATE 325 MG TABLET.DR PO SCH (09:00)
[2019-12-21] MEDS: FUROSEMIDE 10 MG/ML 2ML VIAL IV SCH (09:00)
[2019-12-21] MEDS: ATORVASTATIN CALCIUM 40 MG TABLET PO SCH (09:00)
[2019-12-21] MEDS: SILDENAFIL CITRATE 20 MG TABLET PO SCH ×2 (09:00→21:00)
[2019-12-21] MEDS: CITALOPRAM 20 MG TABLET PO SCH (09:00)
[2019-12-21] MEDS: PENTOXIFYLLINE 400 MG TABLET.SA PO SCH ×2 (09:00→21:00)
[2019-12-21] MEDS: NIFEDIPINE ER 30 MG TAB PO SCH (09:00)
[2019-12-21] MEDS: NYSTATIN 15 GM POWDER TP SCH (09:00)
[2019-12-21] MEDS: MAGNESIUM OXIDE 400 MG TABLET PO SCH ×2 (09:00→21:00)
[2019-12-21] MEDS: LEVOFLOXACIN 500 MG/D5W 100 ML 100 ML IV SCH (11:23)
[2019-12-21 12:00] VITALS: BP 136/56
[2019-12-21 16:00] VITALS: BP_SYST 126; BP_SYST 152; BP_DIAS 58; BP_DIAS 73
[2019-12-21] MEDS: DEXTROSE 10%-WATER 1,000 ML IV SCH (17:31)
[2019-12-21 19:30] VITALS: BP 165/75
[2019-12-21] MEDS: CLOPIDOGREL BISULFATE 75 MG TAB PO SCH (21:00)
[2019-12-22] VITALS: BP 128/68
[2019-12-22] MEDS: ONDANSETRON HCL 4 MG/2 ML VIAL IVP SCH ×4 (00:28→17:09)
[2019-12-22] MEDS: NYSTATIN 15 GM POWDER TP SCH ×3 (00:34→21:00)
[2019-12-22 04:00] VITALS: BP 132/54
[2019-12-22] MEDS: CEFEPIME HCL 1 GM VIAL IVP SCH ×2 (04:17→17:09)
[2019-12-22] MEDS: MORPHINE SULFATE 4 MG/1ML SYG IV PRN ×4 (04:18→17:09)
[2019-12-22] MEDS: HONEY 1 APPL/ML TUBE TP SCH (06:48)
[2019-12-22 08:00] VITALS: BP 114/47
[2019-12-22] MEDS: FAMOTIDINE/PF 20 MG/2 ML VIAL IV SCH (08:48)
[2019-12-22] MEDS: FUROSEMIDE 10 MG/ML 2ML VIAL IV SCH (08:49)
[2019-12-22] MEDS: ASPIRIN 81 MG EC TAB PO SCH (08:54)
[2019-12-22] MEDS: NIFEDIPINE ER 30 MG TAB PO SCH (08:54)
[2019-12-22] MEDS: CITALOPRAM 20 MG TABLET PO SCH (08:55)
[2019-12-22] MEDS: MAGNESIUM OXIDE 400 MG TABLET PO SCH ×2 (08:55→21:00)
[2019-12-22] MEDS: SILDENAFIL CITRATE 20 MG TABLET PO SCH ×2 (08:55→21:00)
[2019-12-22] MEDS: MULTIVITAMINS/MINERALS/IRO TAB PO SCH (08:55)
[2019-12-22] MEDS: **HM** VASCEPA 2GM PO SCH (08:55)
[2019-12-22] MEDS: PENTOXIFYLLINE 400 MG TABLET.SA PO SCH ×2 (08:55→21:00)
[2019-12-22] MEDS: ATORVASTATIN CALCIUM 40 MG TABLET PO SCH (08:55)
[2019-12-22] MEDS: FERROUS SULFATE 325 MG TABLET.DR PO SCH (08:55)
[2019-12-22] MEDS: DEXTROSE 10%-WATER 1,000 ML IV SCH (10:17)
[2019-12-22] MEDS: LEVOFLOXACIN 500 MG/D5W 100 ML 100 ML IV SCH (11:29)
[2019-12-22 16:00] VITALS: BP 119/61
[2019-12-22 20:08] VITALS: BP 151/68
[2019-12-22] MEDS: CLOPIDOGREL BISULFATE 75 MG TAB PO SCH (21:00)
[2019-12-23 00:08] VITALS: BP 123/58
[2019-12-23] MEDS: ONDANSETRON HCL 4 MG/2 ML VIAL IVP SCH ×4 (00:17→17:30)
[2019-12-23 04:08] VITALS: BP 130/63
--- NOTE | 2019-12-23 05:06 | NUR ---
PAGED MD RAI PAGED REGARDING PRN PAIN MEDICATION AND PER FAMILY REQUEST. PENDING CALL BACK
[2019-12-23] MEDS ORDERED: MORPHINE SULFATE 2 MG/ML 1ML SYG ONE (05:13)
[2019-12-23] MEDS: CEFEPIME HCL 1 GM VIAL IVP SCH (05:15)
--- NOTE | 2019-12-23 05:15 | NUR ---
DR. DOMINGUEZ CALLED BACK NEW ORDER FOR MORPHINE 2MG IV Q 4HR PRN.
[2019-12-23] MEDS: DEXTROSE 10%-WATER 1,000 ML IV SCH (05:16)
--- NOTE | 2019-12-23 06:00 | NUR ---
DRESSING CHANGED DRESSING TO SACRUM AND ABDOMEN CHANGED
--- NOTE | 2019-12-23 06:22 | NUR ---
AM BLOOD SUGAR REFUSED AM BLOOD GLUCOSE STICK
[2019-12-23] MEDS: HONEY 1 APPL/ML TUBE TP SCH (06:45)
[2019-12-23 08:21] VITALS: BP 120/56
[2019-12-23] MEDS: MULTIVITAMINS/MINERALS/IRO TAB PO SCH (09:00)
[2019-12-23] MEDS: **HM** VASCEPA 2GM PO SCH (09:00)
[2019-12-23] MEDS: FUROSEMIDE 10 MG/ML 2ML VIAL IV SCH (09:00)
[2019-12-23] MEDS: DEXTROSE 5 %-0.45 % NACL 1,000 ML IV SCH ×2 (09:00→22:45)
[2019-12-23] MEDS: NYSTATIN 15 GM POWDER TP SCH ×2 (09:00→20:44)
[2019-12-23] MEDS: FERROUS SULFATE 325 MG TABLET.DR PO SCH (09:00)
[2019-12-23] MEDS: PENTOXIFYLLINE 400 MG TABLET.SA PO SCH ×2 (09:00→21:00)
[2019-12-23] MEDS: FAMOTIDINE/PF 20 MG/2 ML VIAL IV SCH (09:00)
[2019-12-23] MEDS: ASPIRIN 81 MG EC TAB PO SCH (09:00)
[2019-12-23] MEDS: NIFEDIPINE ER 30 MG TAB PO SCH (09:00)
[2019-12-23] MEDS ORDERED: BISACODYL 10 MG SUPP.RECT RC SCH (09:00)
[2019-12-23] MEDS: MAGNESIUM OXIDE 400 MG TABLET PO SCH ×2 (09:00→21:00)
[2019-12-23] MEDS: SILDENAFIL CITRATE 20 MG TABLET PO SCH ×2 (09:00→21:00)
[2019-12-23] MEDS: CITALOPRAM 20 MG TABLET PO SCH (09:00)
[2019-12-23] MEDS: ATORVASTATIN CALCIUM 40 MG TABLET PO SCH (09:00)
[2019-12-23] MEDS: MORPHINE SULFATE 2 MG/ML 1ML SYG IV PRN ×4 (09:01→22:44)
--- NOTE | 2019-12-23 09:46 | NUR ---
ss f/u Sw met with DAKOTAH Glover who is at bedside. Sister states she spoke to Dr Last this am, but she does not think she is understanding that she will not make decision about hospice vs hh till she has better understanding of current condition, prognosis and options. Nurse Kirill explained to sister what Dr Last said to her this am, and that Dr Last was ordering hospice rep from [facility] to come educate sister on services. Kirill stated that sister told Dr Last she did not know enough about hospice and HH to make decision so, Dr placed order based on sister's comment. Sister repeated several times to nurse and SW, that without a prognosis and understanding of pt's condition, she was not going to make a decision. Sister states she felt pressured to go with hospice.Nurse and SW explained that Dr Last was acting on what sister was saying, that she needed to be more direct with questions she wanted answered. Sister states that she will not go with hospice that Dr Last recommends because she does not want him to follow pt. Kirill to talk to Dr Last and see if he will agree to Dr Reyes meeting with DAKOTAH. Waiting for nurse to recontact SW.
[2019-12-23] MEDS ORDERED: DEXTROSE 5 %-0.45 % NACL 1,000 ML IV ONE (10:29)
[2019-12-23] MEDS ORDERED: BISACODYL 10 MG SUPP.RECT RC ONE (10:30)
[2019-12-23 11:48] VITALS: BP 102/85
[2019-12-23 16:39] LABS: MEAN CORPUSCULAR HEMOGLOBIN 29.8 pg (27.0-33.0); MEAN CORPUSCULAR HGB CONC 32.3 g/dL (32.0-36.0); MEAN CORPUSCULAR VOLUME 92.2 fL (79-99); PLATELET COUNT (AUTO) 40 K/uL (130-400); RED BLOOD CELL COUNT(AUTO) 2.82 MIL/uL (4.00-5.50); RED CELL DISTRIBUTION WIDTH 19.4 % (11.0-15.5)
[2019-12-23 16:58] LABS: BILIRUBIN,TOTAL 0.4 mg/dL (0.2-1.0); CREATININE 1.2 mg/dL (0.5-1.5); POTASSIUM 3.4 mmol/L (3.5-5.1); TOTAL PROTEIN, SERUM 4.6 g/dL (6.0-8.3)
[2019-12-23 17:14] VITALS: BP 106/68
[2019-12-23 18:38] LABS: LYMPHOCYTES % (MANUAL) 5 % (22-44); MONOCYTES % (MANUAL) 3 % (2-9); SEGMENTED NEUTROPHILS % 92 % (40-70)
[2019-12-23 18:39] LABS: MAN.DIFF COMMENT-IMPRESSION MANUAL DIFFERENTIAL
[2019-12-23] MEDS ORDERED: ALTEPLASE 2 MG/VIAL IVCATH ONE (20:15)
[2019-12-23 20:37] VITALS: BP 143/51
[2019-12-23] MEDS: CLOPIDOGREL BISULFATE 75 MG TAB PO SCH (21:00)
--- NOTE | 2019-12-23 21:00 | NUR ---
picc line PATIENT'S PICC LINE OCCLUDED ORDERS TAKEN BY DAY NURSE FOR CATHFLO. IT DID NOT ARRIVE UNTIL 2100 WHEN I ADMINISTERED THE DOSE OF 2MG TO PICK PORT IN RIGHT ARM. I WAITED THE 30 MIN AND RETURNED TO ASPIRATE AND WAS ABLE TO ASPIRATE 10 ML OF BLOOD WHICH I DISPOSED OF. THEN I FLUSHED THE LINE WITH 20 ML OF NS AND DID THE SAME TO THE OTHER PORT. PATIENT AND FAMILY MEMBER AT SIDE ALL QUESTIONS AND CONCERNS ADDRESSED.
[2019-12-24] MEDS: ONDANSETRON HCL 4 MG/2 ML VIAL IVP SCH ×4 (00:44→16:54)
[2019-12-24] MEDS: MORPHINE SULFATE 2 MG/ML 1ML SYG IV PRN ×3 (03:26→14:47)
[2019-12-24 04:00] VITALS: BP 134/55
[2019-12-24] MEDS: HONEY 1 APPL/ML TUBE TP SCH (05:46)
--- NOTE | 2019-12-24 05:47 | NUR ---
DRESSING DRESSINGS TO ABD AND COCCYX CHANGED AND MEDIHONEY APPLIED AND NEW ALLEVYN DRESSING PLACED. FAMILY MEMBER AT BEDSIDE PATIENT TOLERATED WELL WITH MINIMAL PAIN.
[2019-12-24 07:30] VITALS: BP 105/49
[2019-12-24] MEDS: FUROSEMIDE 10 MG/ML 2ML VIAL IV SCH (09:00)
[2019-12-24] MEDS: NIFEDIPINE ER 30 MG TAB PO SCH (09:00)
[2019-12-24] MEDS: FERROUS SULFATE 325 MG TABLET.DR PO SCH (09:00)
[2019-12-24] MEDS: PENTOXIFYLLINE 400 MG TABLET.SA PO SCH (09:00)
[2019-12-24] MEDS: ASPIRIN 81 MG EC TAB PO SCH (09:00)
[2019-12-24] MEDS: MULTIVITAMINS/MINERALS/IRO TAB PO SCH (09:00)
[2019-12-24] MEDS: **HM** VASCEPA 2GM PO SCH (09:00)
[2019-12-24] MEDS: CITALOPRAM 20 MG TABLET PO SCH (09:00)
[2019-12-24] MEDS: ATORVASTATIN CALCIUM 40 MG TABLET PO SCH (09:00)
[2019-12-24] MEDS: SILDENAFIL CITRATE 20 MG TABLET PO SCH (09:00)
[2019-12-24] MEDS: MAGNESIUM OXIDE 400 MG TABLET PO SCH (09:00)
[2019-12-24] MEDS: FAMOTIDINE/PF 20 MG/2 ML VIAL IV SCH (09:31)
[2019-12-24] MEDS: NYSTATIN 15 GM POWDER TP SCH (09:34)
[2019-12-24] MEDS: TRAMADOL HCL 50 MG TABLET PO PRN ×2 (09:36→16:58)
--- NOTE | 2019-12-24 10:41 | NUR ---
DCP: HOME WITH [facility] SW present when Dr Reyes met with pt and DAKOTAH Glover with pt's mother on speaker as well. Dr Reyes discussed current condition, prognosis and options. Family stated that they want pt comfortable and decided to take pt home today with hospice. encouraged family to stay with Dr Last and hospice agencies he recommended because he is familiar with pt and he condition. FAmily stated that they did not want to keep Dr Last on as PCP and stated they wanted to use [facility] and have Dr Reyes follow pt at home. Dr Last was informed of family decision and gave order for [facility] hospice. OOHDNR was signed by Dr Reyes and DAKOTAH. SW called Guveara Bertrand at [facility] [phone] and made referral. Pt info faxed to [phone]. Waiting on acceptance and DME, CM aware and will arrange transport
--- NOTE | 2019-12-24 10:58 | NUR ---
[facility] INFORMED [facility] AND WILL INFORM WHEN READY KAMRAN WILL INFORM NURSE WHEN PATIENT IS READY FOR DISCHARGE.
[2019-12-24] MEDS: DEXTROSE 5 %-0.45 % NACL 1,000 ML IV SCH ×2 (11:40→13:39)
--- NOTE | 2019-12-24 13:10 | NUR ---
CALLED [facility] TO GIVE REPORT SPOKE WITH JUDITH. JUDITH SAID NURSE WOULD CALL BACK TO GET REPORT, PROVIDED WITH Call back number. JUDITH VERBALIZED UNDERSTANDING.
--- NOTE | 2019-12-24 14:55 | NUR ---
MAURICE ROCHA RN CALLED BACK TO GET REPORT, REPORT GIVEN, MAURICE VERBALIZED UNDERSTANDING. MAURICE SAID HE WOULD CALL BACK TO NOTIFY WHEN EQUIPMENT WAS DELIVERED TO PATIENT'S HOUSE TO DISCHARGE.
--- NOTE | 2019-12-24 16:04 | NUR ---
MAURICE ROCHA RN CALLED BACK TO INFORM EQUIPMENT HAS BEEN DELIVERED TO PATIENT'S HOUSE. WILL RESUME WITH DISCHARGE AND CALL EMS FOR TRANSPORT.
--- NOTE | 2019-12-24 17:25 | NUR ---
CALLED EMS FOR TRANSPORT SPOKE WITH EMERITA, VERBALIZED UNDERSTANDING.
[2019-12-24] MEDS ORDERED: BISACODYL 10 MG SUPP.RECT RC ONE ×2 (17:52→18:30)
== END 2019-12-24 20:01 | disposition hospice, home (50) | DRG 871 ==
LOC: EDH 13:24 → EDHIP 15:40 → OBSVTOIN 15:40 → 3DH 17:37
PROVIDERS: ADMIT Internal Medicine; ATTEND Internal Medicine
PROC: 0W9G3ZZ Drainage of Peritoneal Cavity, Percutaneous Approach (ICD-10-PCS; principal; 2019-12-17)
PROC: 02HV33Z Insertion of Infusion Device into Superior Vena Cava, Percutaneous Approach (ICD-10-PCS; 2019-12-17)
DX: A41.9 Sepsis, unspecified organism (principal); E43 Unspecified severe protein-calorie malnutrition; L03.311 Cellulitis of abdominal wall; I73.01 Raynaud's syndrome with gangrene; K56.609 Unspecified intestinal obstruction, unspecified as to partial versus complete obstruction; K56.7 Ileus, unspecified; N17.9 Acute kidney failure, unspecified; R18.8 Other ascites; R19.7 Diarrhea, unspecified; N18.9 Chronic kidney disease, unspecified; E11.22 Type 2 diabetes mellitus with diabetic chronic kidney disease; E11.649 Type 2 diabetes mellitus with hypoglycemia without coma; I12.9 Hypertensive chronic kidney disease with stage 1 through stage 4 chronic kidney disease, or unspecified chronic kidney disease; E88.09 Other disorders of plasma-protein metabolism, not elsewhere classified; E86.0 Dehydration; Z68.27 Body mass index [BMI] 27.0-27.9, adult; Z20.828 Contact with and (suspected) exposure to other viral communicable diseases; D64.9 Anemia, unspecified; D69.6 Thrombocytopenia, unspecified; G89.4 Chronic pain syndrome; K74.60 Unspecified cirrhosis of liver; M32.9 Systemic lupus erythematosus, unspecified; Z89.511 Acquired absence of right leg below knee; Z89.512 Acquired absence of left leg below knee
CPT/HCPCS: 36415; 49083; 74176; 80048; 80053; 81001; 82550; 82947; 82948; 83605; 83630; 83690; 83735; 84145; 85025; 85027; 85610; 87040; 87071; 87205; 87493; 87635; 88112; 88305; 89051; C1894; G0378; J0692; J1940; J1956; J2270; J2405; J2997; J3475; J3480; J3490; J7030; J7042; J7050; J7070; P9046